=== PATIENT | female | born 1980 ===

== ENCOUNTER 2017-12-10 15:40 | Emergency (ER) | payer OTHER ==
[2017-12-10 15:56] VITALS: RESP 18; TEMP 98; O2SAT 100
--- NOTE | 2017-12-10 16:50 | ED PDOC ---
Lower Extremity Pain/Injury Time Seen by Provider: 12/10/17 15:48 Chief Complaint (Nursing): Lower Extremity Problem/Injury Chief Complaint (Provider): Right [place] Pain History Per: Patient History/Exam Limitations: no limitations Onset/Duration Of Symptoms: Days Current Symptoms Are (Timing): Still Present Severity: Moderate Additional Complaint(s): 37 year old female presents to the ER for an evaluation of right ankle pain. Patient states she was playing basketball yesterday and twisted her right ankle. She had minimal pain and did a hot epsom bath. Today, there was swelling and pain prompting her for an ER visit. She denies numbness, tingling or other injuries. PMD: Unknown Past Medical History Reviewed: Historical Data, Nursing Documentation, Vital Signs Vital Signs: Last Vital Signs Temp 98 F 12/10/17 15:52 Pulse 89 12/10/17 15:52 Resp 18 12/10/17 15:52 BP 130/84 12/10/17 15:52 Pulse Ox 100 12/10/17 15:52 - Medical History PMH: No Chronic Diseases - Family History Family History: States: Unknown Family Hx - Allergies Allergies/Adverse Reactions: Allergies Allergy/AdvReac Type Severity Reaction Status Date / Time No Known Allergies Allergy Verified 12/10/17 15:52 Review of Systems ROS Statement: Except As Marked, All Systems Reviewed And Found Negative Musculoskeletal: Positive for: Other (right ankle pain) Neurological: Negative for: Numbness, Other (tingling) Psych: Negative for: Suicidal ideation (homicidal ideation) Physical Exam - Reviewed Nursing Documentation Reviewed: Yes Vital Signs Reviewed: Yes - Physical Exam Appears: Positive for: Non-toxic, No Acute Distress (minimal) Head Exam: Positive for: ATRAUMATIC, NORMAL INSPECTION, NORMOCEPHALIC Skin: Positive for: Normal Color, Warm, Dry Pulses-Dorsalis Pedis (L): 2+ Pulses-Dorsalis Pedis (R): 2+ Extremity: Positive for: Tenderness (moderate to right lateral malleolus, skin warm no skin change or break in skin integrity), Swelling (moderate to right lateral malleolus). Negative for: Deformity, Other (tenderness to right foot or knee) Neurologic/Psych: Positive for: Alert, Oriented (x3). Negative for: Motor/ Sensory Deficits - ECG O2 Sat by Pulse Oximetry: 100 (RA) Pulse Ox Interpretation: Normal - Radiology X-Ray: Read By Radiologist X-Ray Interpretation: Other (lateral STS; no fx) - Progress ED Course And Treament: Ankle immobilized in aircast splint applied by [facility]. Crutches and crutch walking instructions provided. Advised to f/u with Dr. Moon for further evaluation. Medical Decision Making Medical Decision Making: Time: 1602 Initial Plan: --ED Urine --Motrin 600mg --Ankle Right 3 Views [RAD] --Reevaluation Scribe Attestation: Documented by Krishna Sanders, acting as a scribe for Bhanu Wen PA-C. Provider Scribe Attestation: All medical record entries made by the Scribe were at my direction and personally dictated by me. I have reviewed the chart and agree that the record accurately reflects my personal performance of the history, physical exam, medical decision making, and the department course for this patient. I have also personally directed, reviewed, and agree with the discharge instructions and disposition. Disposition - Clinical Impression Clinical Impression: Ankle injury - Patient ED Disposition Is Patient to be Admitted: No - Disposition Referrals: Glenn Moon MD [Staff Provider] - Disposition: Routine/Home Disposition Time: 17:41 Condition: STABLE Additional Instructions: BASILIO KIRKPATRIKC, thank you for letting us take care of you today. Your provider was Maru German MD and you were treated for RT ANKLE PAIN. The emergency medical care you received today was directed at your acute symptoms. If you were prescribed any medication, please fill it and take as directed. It may take several days for your symptoms to resolve. Return to the Emergency Department if your symptoms worsen, do not improve, or if you have any other problems. Please contact your doctor or call one of the physicians/clinics you have been referred to that are listed on the Patient Visit Information form that is included in your discharge packet. Bring any paperwork you were given at discharge with you along with any medications you are taking to your follow up visit. Our treatment cannot replace ongoing medical care by a primary care provider outside of the emergency department. Thank you for allowing the [facility] team to be part of your care today. If you had an X-Ray or CT scan: A Radiologist will review the ED reading if any change in treatment is needed we will contact you. If you had a blood, urine, or wound culture: It will take several days for the results, if any change in treatment is needed we will contact you. If you had an STI test: It will take 48 hours for the results. Please call after 1 week if you have not heard back. Instructions: Ankle Sprain (DC), How to Use Crutches Forms: [employer] ([place]ian), [facility] ED School/Work Excuse Print Language: MAORI
[2017-12-10 18:03] VITALS: BP 122/70; PULSE 78
--- NOTE | 2017-12-10 18:08 | RAD ---
Date of service: 12/10/2017 HISTORY: trauma COMPARISON: No prior FINDINGS: BONES: Normal. No fracture. JOINTS: Normal. No osteoarthritis. SOFT TISSUE: Normal. OTHER FINDINGS: None . IMPRESSION: Normal Bone Xray.
== END 2017-12-10 17:59 | disposition home or self-care (01) ==
LOC: H.ER 15:40
DX: S99.911A Unspecified injury of right ankle, initial encounter (principal); X50.9XXA Other and unspecified overexertion or strenuous movements or postures, initial encounter; Y92.310 Basketball court as the place of occurrence of the external cause